=== PATIENT | female | born 1990 | race Caucasian/White ===

== ENCOUNTER 2016-08-30 08:34 | Emergency (ER) | payer MEDICAID | END 2016-08-30 12:38 | disposition home or self-care (01) | DX: R50.9 Fever, unspecified (principal); R06.00 Dyspnea, unspecified; R05 Cough; Z97.5 Presence of (intrauterine) contraceptive device; Z87.891 Personal history of nicotine dependence ==

== ENCOUNTER 2022-02-09 08:00 | Outpatient (CLI) | payer MEDICAID ==
[2022-02-09 09:26] LABS: BASOPHILS # (AUTO) 0.1 10^3/uL (0.0-0.1); BASOPHILS % (AUTO) 1.2 %; EOSINOPHILS # (AUTO) 0.2 10^3/uL (0.0-0.7); EOSINOPHILS % (AUTO) 3.6 %; HCT - HEMATOCRIT 45.6 % (37.0-47.0); HGB - HEMOGLOBIN 14.6 g/dL (12.0-16.0); LYMPHOCYTES # (AUTO) 1.7 10^3/uL (1.5-3.5); LYMPHOCYTES % (AUTO) 33.8 %; MEAN CORPUSCULAR HEMOGLOBIN 30.2 pg (27.0-31.0); MEAN CORPUSCULAR VOLUME 94.4 fL (81.0-99.0); MEAN PLATELET VOLUME 10.3 fL (7.9-10.8); MONOCYTES # (AUTO) 0.5 10^3/uL (0.0-1.0); MONOCYTES % (AUTO) 9.7 %; NEUTROPHILS # (AUTO) 2.6 10^3/uL (1.5-6.6); NEUTROPHILS % (AUTO) 51.5 %; PLT - PLATELET COUNT 189 10^3/uL (130-450); RED BLOOD COUNT 4.83 10^6/uL (4.20-5.40); RED CELL DISTRIBUTION WIDTH 12.8 % (12.0-15.0); WHITE BLOOD COUNT 5.1 x10^3/uL (4.8-10.8)
[2022-02-09 09:47] LABS: ALBUMIN 4.2 g/dL (3.2-5.5); ALBUMIN/GLOBULIN RATIO 1.6 (1.0-2.2); ALKALINE PHOSPHATASE 64 IU/L (42-121); ALT ALANINE AMINOTRANSFERASE 25 IU/L (10-60); AST ASPARTATE AMINOTRANSFERASE 20 IU/L (10-42); BILIRUBIN,TOTAL 0.8 mg/dL (0.2-1.0); BUN - BLOOD UREA NITROGEN 14 mg/dL (6-20); CALCIUM 9.5 mg/dL (8.5-10.3); CARBON DIOXIDE - CO2 28 mmol/L (21-32); CHLORIDE 104 mmol/L (101-111); CHOL/HDL RATIO 3.5 (<4.4); CHOLESTEROL 194 mg/dL; CREATININE 0.8 mg/dL (0.4-1.0); GFR - MDRD 84 (>89); GLUCOSE 93 mg/dL (70-100); HDL CHOLESTEROL 55 mg/dL; LDL CHOLESTEROL,CALCULATED 116 mg/dL; LDL/HDL RATIO 2.1 (<4.4); POTASSIUM 4.4 mmol/L (3.5-5.0); SODIUM 138 mmol/L (135-145); TOTAL PROTEIN 6.9 g/dL (6.7-8.2); TRIGLYCERIDES 117 mg/dL; VLDL CHOLESTEROL 23 mg/dL
[2022-02-09 09:55] LABS: THYROID STIMULATING HORMONE 2.57 uIU/mL (0.34-5.60)
== END 2022-02-09 23:59 | disposition home or self-care (01) ==
LOC: LAB 08:00
PROVIDERS: ATTEND Physician Assistant
DX: D64.9 Anemia, unspecified (principal); Z13.9 Encounter for screening, unspecified; Z13.220 Encounter for screening for lipoid disorders; Z13.29 Encounter for screening for other suspected endocrine disorder
CPT/HCPCS: 36415; 80053; 80061; 83721; 84443; 85025

== ENCOUNTER 2022-04-09 08:51 | Emergency (ER) | payer MEDICAID ==
[2022-04-09 09:19] VITALS: BP 124/81
--- NOTE | 2022-04-09 09:57 | XRAY Report ---
PROCEDURE: Chest 1 View X-Ray INDICATIONS: cough TECHNIQUE: One view of the chest was acquired. COMPARISON: 08/30/2016. FINDINGS: Surgical changes and devices: None. Lungs and pleura: No pleural effusions or pneumothorax. Lungs are clear. Mediastinum: Mediastinal contours appear normal. Heart size is normal. Bones and chest wall: No suspicious bony lesions. Overlying soft tissues appear unremarkable. IMPRESSION: No evidence acute pulmonary process. Reviewed by: Abiodun Russell MD on 04/09/2022 9:56 AM [facility] Approved by: Abiodun Russell MD on 04/09/2022 9:56 AM [facility] Station ID: [id number]
--- NOTE | 2022-04-09 11:20 | ED Physician Documentation ---
PD HPI URI - Stated complaint Stated Complaint: COUGH,SOA,VOMIT - Chief complaint Chief Complaint: Resp - History obtained from History obtained from: Patient - Additional information Additional information: Patient is a 32-year-old female with no significant past medical history presenting for evaluation of feeling generalized malaise and unwell for the past 2 days with fevers, productive cough of green phlegm. She has been using antipyretics with some improvement.She has had loose stools. She is here With her 2 children who also have similar symptoms. Review of Systems Constitutional: reports: Fever, Myalgias Nose: denies: Congestion Cardiac: denies: Chest pain / pressure Respiratory: reports: Cough GI: reports: Diarrhea. denies: Abdominal Pain, Vomiting : denies: Dysuria Musculoskeletal: denies: Back pain Neurologic: denies: Headache PD PAST MEDICAL HISTORY - Past Medical History Cardiovascular: None Respiratory: None Endocrine/Autoimmune: None GI: None SIDE LASTER TACK: None : None HEENT: None Psych: None Musculoskeletal: None Derm: None - Past Surgical History Past Surgical History: Yes /SIDE LASTER TACK: Dilation and currettage - Present Medications Home Medications: Ambulatory Orders Medication Instructions Recorded Confirmed Acyclovir 0 mg PO PRN PRN 08/30/16 08/30/16 - Allergies Allergies/Adverse Reactions: Allergies Allergy/AdvReac Type Severity Reaction Status Date / Time No Known Drug Allergies Allergy Verified 04/09/22 09:19 - Social History Does the pt smoke?: No Smoking Status: Former smoker Does the pt drink ETOH?: No Does the pt have substance abuse?: No - Immunizations Immunizations are current?: Yes - POLST Patient has POLST: No PD ED PE NORMAL - General General: Alert and oriented X 3, No acute distress, Well developed/nourished - HEENT HEENT: Atraumatic, Ears normal, Moist mucous membranes, Pharynx benign - Neck Neck: Supple, no meningeal sign - Cardiac Cardiac: RRR, No murmur - Respiratory Respiratory: No respiratory distress, Clear bilaterally - Abdomen Abdomen: Soft, Non tender, Non distended - Derm Derm: Warm and dry - Extremities Extremities: No edema - Neuro Neuro: Normal speech Results - Vitals Vitals: Vital Signs - 24 hr 04/09/22 09:14 Temperature 36.8 C Heart Rate 105 H Respiratory 16 Rate Blood Pressure 124/81 H O2 Saturation 97 Oxygen O2 Source Room air - Labs Labs: Laboratory Tests 04/09/22 09:35 SARS-CoV-2 (PCR) NOT DETECTED PD MEDICAL DECISION MAKING - ED course ED course: Pt with URI symptoms, here with kids with similar symptoms. VSS. Covid negative. Chest XR clear. Pt appears well hydrated and non labored with breathing. Tolerating PO. Counseled on continuing with supportive care and advised on concerning symptoms to return for. Departure - Departure Disposition: 01 Home, Self Care Clinical Impression: Flu-like symptoms Condition: Stable Instructions: ED Viral Syndrome Comments: Your symptoms are likely related to a respiratory virus. We are seeing a high prevalence of influenza A, RSV, Another common cold viruses In our community currently. Please continue with acetaminophen or ibuprofen as needed for fevers and body aches, frequent hydration, rest. I would expect your symptoms to get better over the course of the next week. Your COVID test is negative. Your chest x-ray is clear. Return to the ER if you have any worsening symptoms such as labored breathing or continued vomiting. Discharge Date/Time: 04/09/22 12:01
== END 2022-04-09 12:01 | disposition home or self-care (01) ==
LOC: ED 08:51
DX: R05.8 Other specified cough (principal); R19.7 Diarrhea, unspecified; R50.9 Fever, unspecified; Z20.822 Contact with and (suspected) exposure to COVID-19
CPT/HCPCS: 99282; 99284

== ENCOUNTER 2023-02-14 09:12 | Outpatient (CLI) | payer MEDICAID ==
[2023-02-14 09:25] LABS: BASOPHILS # (AUTO) 0.1 10^3/uL (0.0-0.1); BASOPHILS % (AUTO) 1.5 %; EOSINOPHILS # (AUTO) 0.3 10^3/uL (0.0-0.7); EOSINOPHILS % (AUTO) 4.1 %; HCT - HEMATOCRIT 43.3 % (37.0-47.0); HGB - HEMOGLOBIN 14.3 g/dL (12.0-16.0); LYMPHOCYTES % (AUTO) 30.2 %; MEAN CORPUSCULAR HEMOGLOBIN 30.5 pg (27.0-31.0); MEAN CORPUSCULAR VOLUME 92.3 fL (81.0-99.0); MEAN PLATELET VOLUME 10.4 fL (7.9-10.8); MONOCYTES # (AUTO) 0.6 10^3/uL (0.0-1.0); MONOCYTES % (AUTO) 8.6 %; NEUTROPHILS # (AUTO) 3.6 10^3/uL (1.5-6.6); NEUTROPHILS % (AUTO) 55.4 %; PLT - PLATELET COUNT 214 10^3/uL (130-450); RED BLOOD COUNT 4.69 10^6/uL (4.20-5.40); RED CELL DISTRIBUTION WIDTH 12.7 % (12.0-15.0); WHITE BLOOD COUNT 6.5 x10^3/uL (4.8-10.8)
[2023-02-14 09:39] LABS: ALBUMIN 4.1 g/dL (3.2-5.5); ALBUMIN/GLOBULIN RATIO 1.8 (1.0-2.2); ALKALINE PHOSPHATASE 45 IU/L (42-121); ALT ALANINE AMINOTRANSFERASE 14 IU/L (10-60); AST ASPARTATE AMINOTRANSFERASE 13 IU/L (10-42); BILIRUBIN,TOTAL 0.4 mg/dL (0.2-1.0); BUN - BLOOD UREA NITROGEN 15 mg/dL (6-20); CALCIUM 9.4 mg/dL (8.5-10.3); CARBON DIOXIDE - CO2 27 mmol/L (21-32); CHLORIDE 106 mmol/L (101-111); CHOL/HDL RATIO 4.6 (<4.4); CHOLESTEROL 203 mg/dL; CREATININE 0.9 mg/dL (0.6-1.3); GFR - MDRD 73 (>89); GLUCOSE 90 mg/dL (74-104); HDL CHOLESTEROL 44 mg/dL; LDL CHOLESTEROL,CALCULATED 120 mg/dL; LDL/HDL RATIO 2.7 (<4.4); POTASSIUM 4.4 mmol/L (3.5-4.5); SODIUM 137 mmol/L (135-145); TOTAL PROTEIN 6.4 g/dL (6.4-8.9); TRIGLYCERIDES 196 mg/dL (48-352); VLDL CHOLESTEROL 39 mg/dL
[2023-02-14 09:54] LABS: THYROID STIMULATING HORMONE 3.31 uIU/mL (0.34-5.60)
== END 2023-02-14 09:13 | disposition home or self-care (01) ==
LOC: LAB 09:12
PROVIDERS: ATTEND Physician Assistant
DX: D64.9 Anemia, unspecified (principal); Z13.220 Encounter for screening for lipoid disorders; Z13.9 Encounter for screening, unspecified
CPT/HCPCS: 36415; 80053; 80061; 83721; 84443; 85025

== ENCOUNTER 2023-12-31 18:21 | Emergency (ER) | payer MEDICAID ==
[2023-12-31 18:28] VITALS: O2SAT 100
[2023-12-31] MEDS: TETANUS/DIPHTHERIA/PERTUSSIS 0.5 ML SYRINGE IM ONE (19:13)
--- NOTE | 2023-12-31 19:45 | ED Physician Documentation ---
History of Present Illness - Stated complaint Stated Complaint: RT HAND LAC - Chief complaint Chief Complaint: Laceration - Additonal information Additional information: Patient is a 33-year-old female presents to the emergency department after washing dishes at home when she accidentally cut herself on the glass piece of dish. She notes injury occurred to her right hand and she is right-handed. Patient notes her last tetanus was in 2015 no more recent tetanus other than that. She denies any blood thinners. She is unable to control bleeding on arrival. Injury occurred to the dorsal right hand. She denies any numbness or tingling on arrival. 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 : None HEENT: None Psych: None Musculoskeletal: None Derm: None - Past Surgical History Past Surgical History: Yes /SOCIAL MEDIA MARKETER: Dilation and currettage - Present Medications Home Medications: Ambulatory Orders Medication Instructions Recorded Confirmed No Known Home Medications 12/31/23 12/31/23 - Allergies Allergies/Adverse Reactions: Allergies Allergy/AdvReac Type Severity Reaction Status Date / Time No Known Drug Allergies Allergy Verified 12/31/23 18:25 - Social History Does the pt smoke?: No Smoking Status: Never smoker Does the pt drink ETOH?: No Does the pt have substance abuse?: No - Immunizations Immunizations are current?: Yes - POLST Patient has POLST: No PD ED PE NORMAL - Vitals Vital signs reviewed: Yes - General General: Alert and oriented X 3 - HEENT HEENT: Atraumatic - Neck Neck: Supple, no meningeal sign - Cardiac Cardiac: RRR, No murmur, No gallop, No rub - Respiratory Respiratory: No respiratory distress, Clear bilaterally - Derm Derm: Normal color - Free text exam Free text exam: Laceration to dorsal right hand good capillary refill in digits 1 through 5. Injury occurred over metatarsal distal region of digits 2 and 3 with full range of motion and flexion extension intact at DIP PIP and MCP joints. Radial pulse 2+ good sensation throughout. Results - Vitals Vitals: Vital Signs - 24 hr 12/31/23 12/31/23 18:25 20:40 Temperature 36.8 C 36.2 C L Heart Rate 77 77 Respiratory 16 18 Rate Blood Pressure 138/87 H 111/68 O2 Saturation 100 100 Oxygen O2 Source Room air Procedures - Laceration (location) right dorsal hand Wound type: Curved Neurovascular status: Sensory intact, Motor intact, Vascular intact Tendon involvement: Tendon intact Anesthesia: Lidocaine 1% Wound preparation: Irrigated copiously NS Skin layer closure: Nylon, Sutures - enter # (5) Other: Patient tolerated well, No complications, Dressing applied, Tetanus booster given PD Medical Decision Making - ED course Complexity details: reviewed old records, reviewed results ED course: Patient is a 33-year-old female sustained laceration to dorsal right hand. She is not up-to-date on her tetanus injury occurred after washing dishes at home and cutting herself on a piece of glass. Patient denies any numbness or tingling. Digits 1 through 5 intact injury over dorsal hand right below second and third digit over metacarpal region. 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 See procedure note above patient tolerated well. She is instructed to have sutures removed in 10 to 14 days. Keep wound clean dry avoid soaking wound. Patient instructed to return with any discharge swelling or irritation redness warmth or fevers. Patient understands and is agreeable with this plan. She will follow- up with her PCP in 10 to 14 days for suture removal. Patient will change dressing in 12 hours. Departure - Departure Disposition: 01 Home, Self Care Clinical Impression: Laceration Condition: Good Instructions: ED Laceration All, ED Laceration Hand Comments: You were seen here in the emergency department for your right dorsal hand laceration.Your workup here showed injury with laceration you received 5 stitches. These need to be removed in 10 days. You can have your PCP or urgent care remove these make sure wound is clean and dry premove and redress in 12 hours. Follow-up with PCP in 10 daysReturn with any redness swelling warmth fevers discharge difficulty moving digits or numbness or tingling in digits or discoloration. Forms: PCP List Discharge Date/Time: 12/31/23 20:41
[2023-12-31 20:44] VITALS: BP 111/68
== END 2023-12-31 20:41 | disposition home or self-care (01) ==
LOC: ED 18:21
DX: S61.411A Laceration without foreign body of right hand, initial encounter (principal); W26.8XXA Contact with other sharp object(s), not elsewhere classified, initial encounter; Z23 Encounter for immunization
CPT/HCPCS: 12002; 90471; 99283